=== PATIENT | male | born 1990 | race Two or more races ===

== ENCOUNTER 2021-08-30 00:13 | Emergency (ER) | payer OTHER ==
[~2021-08-30] VITALS: Ht 175.3 cm; Wt 91.0 kg
[~2021-08-30 00:13] MED LIST: APIX5TAB PO; GABA-533 PO; KEPP500 MT; OLAN5TAB74 PO
[2021-08-30] MEDS ORDERED: LEVETIRACETAM 1000MG PREMIX 100 ML IV ONE (00:45)
[2021-08-30] MEDS ORDERED: KETOROLAC 30MG/ML VIAL IV ONE (01:00)
[2021-08-30 01:22] LABS: BASOPHILS % 0.4 % (0.0-2.0); EOSINOPHILS % 4.6 % (0.0-5.0); HEMATOCRIT. 38.7 % (42.0-52.0); HEMOGLOBIN. 12.5 g/dL (14.0-18.0); LYMPHOCYTES % 28.4 % (20.0-50.0); MEAN CORPUSCULAR HEMOGLOBIN 26.9 pg (28.0-32.0); MEAN CORPUSCULAR VOLUME 83.5 fL (80.0-94.0); MEAN PLATELET VOLUME 8.9 fl (7.4-10.4); MONOCYTES % 12.5 % (2.0-8.0); NEUTROPHILS % 54.1 % (40.0-76.0); PLATELET 236 x1000/uL (130-400); RED BLOOD CELL COUNT 4.64 mill/uL (4.7-6.1); RED CELL DISTRIBUTION WIDTH 16.4 % (11.6-14.6)
[2021-08-30 01:36] LABS: CHLORIDE 106 mEq/L (98-107)
[2021-08-30 01:39] LABS: ETHANOL BLOOD < 10 mg/dL
[2021-08-30 04:51] LABS: CLARITY URINE CLEAR (CLEAR); COLOR URINE YELLOW (YELLOW); KETONES URINE NEGATIVE (NEGATIVE); LEUKOCYTE ESTERASE URINE NEGATIVE (NEGATIVE); NITRITE URINE NEGATIVE (NEGATIVE); OCCULT BLOOD URINE NEGATIVE (NEGATIVE); PROTEIN URINE TRACE (NEGATIVE); UROBILINOGEN URINE 0.2 E.U./dL (0.2-1.0)
[2021-08-30 05:00] VITALS: BP 115/78
[2021-08-30 05:22] LABS: *AMPHETAMINES SCREEN URINE PRESUMTIVE POSITIVE (NEGATIVE); *BARBITURATES SCREEN URINE NEGATIVE (NEGATIVE); *BENZODIAZEPINES SCREEN URINE NEGATIVE (NEGATIVE); *COCAINE SCREEN URINE NEGATIVE (NEGATIVE); METHADONE URINE SCREEN NEGATIVE (NEGATIVE); OPIATES URINE SCREEN NEGATIVE (NEGATIVE); PHENCYCLIDINE URINE SCREEN NEGATIVE (NEGATIVE)
[2021-08-30 05:23] LABS: CANNABINOID URINE SCREEN NEGATIVE (NEGATIVE)
[2021-08-30] MEDS ORDERED: APIX5TAB MT (05:39)
[2021-08-30] MEDS ORDERED: KEPP500 MT (05:39)
[2021-08-30] MEDS ORDERED: APIX5TAB PO (13:01)
== END 2021-08-30 07:07 | disposition home or self-care (01) ==
LOC: ER 00:13
DX: G40.909 Epilepsy, unspecified, not intractable, without status epilepticus (principal); I82.401 Acute embolism and thrombosis of unspecified deep veins of right lower extremity; F19.10 Other psychoactive substance abuse, uncomplicated; F15.10 Other stimulant abuse, uncomplicated; Z91.018 Allergy to other foods; Z88.1 Allergy status to other antibiotic agents; Z88.5 Allergy status to narcotic agent; Z88.6 Allergy status to analgesic agent; Z98.890 Other specified postprocedural states
CPT/HCPCS: 36415; 72170; 73551; 73562; 73590; 80053; 80305; 80320; 81003; 82962; 83605; 85025; 93005; 93971; 96365; 96375; 99285; J1885; J1953; G0480

== ENCOUNTER 2021-08-30 09:48 | Emergency (ER) | payer OTHER ==
[~2021-08-30] VITALS: Ht 193 cm; Wt 97.0 kg
[~2021-08-30 09:48] MED LIST changes: +APIX5TAB MT
[2021-08-30] MEDS ORDERED: APIX5TAB PO (13:01)
[2021-08-30 13:40] VITALS: BP 112/75
== END 2021-08-30 13:45 | disposition home or self-care (01) ==
LOC: ER 11:47
DX: I82.401 Acute embolism and thrombosis of unspecified deep veins of right lower extremity (principal); M25.571 Pain in right ankle and joints of right foot; M79.671 Pain in right foot; Z88.0 Allergy status to penicillin; Z88.6 Allergy status to analgesic agent; Z88.8 Allergy status to other drugs, medicaments and biological substances; Z88.5 Allergy status to narcotic agent; Z91.018 Allergy to other foods; Z79.899 Other long term (current) drug therapy; Z88.1 Allergy status to other antibiotic agents; Z98.890 Other specified postprocedural states; Z86.59 Personal history of other mental and behavioral disorders
CPT/HCPCS: 73600; 73620; 99284

== ENCOUNTER 2025-01-08 20:28 | Emergency (ER) | payer OTHER ==
[~2025-01-08] VITALS: Ht 195.6 cm; Wt 91.0 kg
[~2025-01-08 20:28] MED LIST changes: -APIX5TAB MT; +CLIN-26 PO; +ESCI10TA MT; -GABA-533 PO; +GABA-534 PO; +LEVE1000 MT; +PRAZ1CAP5 MT; +TRAZ-251 MT
[2025-01-08 20:30] VITALS: TEMP 36.8; O2SAT 94
[2025-01-08 21:27] LABS: CHLORIDE 104 mEq/L (98-107); POTASSIUM 4.3 mEq/L (3.5-5.1); SODIUM 137 mEq/L (136-145)
[2025-01-08 21:28] LABS: CALCIUM 9.5 mg/dL (8.7-10.4); CARBON DIOXIDE 21 mEq/L (21-32)
[2025-01-08 21:29] LABS: BASOPHILS % 0.5 % (0.0-2.0); EOSINOPHILS % 8.8 % (0.0-5.0); HEMOGLOBIN. 13.5 g/dL (14.0-18.0); LYMPHOCYTES % 46.7 % (20.0-50.0); MEAN CORPUSCULAR HEMOGLOBIN 26.8 pg (28.0-32.0); MEAN CORPUSCULAR HGB CONC 31.3 g/dL (31.0-37.0); MEAN CORPUSCULAR VOLUME 85.7 fL (80.0-94.0); MEAN PLATELET VOLUME 9.3 fl (7.4-10.4); MONOCYTES % 13.5 % (2.0-8.0); NEUTROPHILS % 30.5 % (40.0-76.0); PLATELET 160 x1000/uL (130-400); RED BLOOD CELL COUNT 5.01 mill/uL (4.7-6.1); RED CELL DISTRIBUTION WIDTH 18.1 % (11.6-14.6); WHITE BLOOD COUNT 3.9 x1000/uL (4.5-11.0)
[2025-01-08 21:33] LABS: ETHANOL BLOOD < 10 mg/dL (<10); GLUCOSE 94 mg/dL (70-105); UREA NITROGEN BLOOD 10 mg/dL (9-23)
[2025-01-08] MEDS: LEVETIRACETAM 500MG PREMIX 100 ML IV ONE (21:49)
[2025-01-08] MEDS: LEVETIRACETAM 1000MG PREMIX 100 ML IV ONE (21:49)
[2025-01-09] MEDS: DIPHENHYDRAMINE HCL/ZINC ACET 28 GM CREAM TOP STA (02:12)
[2025-01-09 04:20] VITALS: BP 107/64; PULSE 51; RESP 16; O2SAT 100
== END 2025-01-09 04:41 | disposition home or self-care (01) ==
LOC: ER 20:36
DX: G40.909 Epilepsy, unspecified, not intractable, without status epilepticus (principal); F15.90 Other stimulant use, unspecified, uncomplicated; Z79.899 Other long term (current) drug therapy; Z79.01 Long term (current) use of anticoagulants; Z98.890 Other specified postprocedural states; Z86.718 Personal history of other venous thrombosis and embolism; Z88.0 Allergy status to penicillin; Z88.1 Allergy status to other antibiotic agents; Z88.2 Allergy status to sulfonamides; Z88.5 Allergy status to narcotic agent
CPT/HCPCS: 80048; 80320; 82962; 85025; 36415; 96365; 99284; J1953; Z7610 ×2; 99285; A4606; G0480

== ENCOUNTER 2025-02-16 08:14 | Emergency (ER) | payer OTHER ==
[~2025-02-16] VITALS: Ht 177.8 cm; Wt 74.0 kg
[2025-02-16 08:16] VITALS: O2SAT 99
[2025-02-16] MEDS ORDERED: LEVETIRACETAM 500MG PREMIX 100 ML IV ONE (08:30)
[2025-02-16 09:03] LABS: BASOPHILS % 1.0 % (0.0-2.0); EOSINOPHILS % 8.4 % (0.0-5.0); HEMATOCRIT. 40.7 % (42.0-52.0); HEMOGLOBIN. 13.1 g/dL (14.0-18.0); LYMPHOCYTES % 35.7 % (20.0-50.0); MEAN PLATELET VOLUME 9.0 fl (7.4-10.4); MONOCYTES % 10.1 % (2.0-8.0); NEUTROPHILS % 44.8 % (40.0-76.0); PLATELET 217 x1000/uL (130-400); RED BLOOD CELL COUNT 4.82 mill/uL (4.7-6.1); RED CELL DISTRIBUTION WIDTH 18.1 % (11.6-14.6)
[2025-02-16] MEDS ORDERED: LEVE1000 MT (09:09)
[2025-02-16] MEDS: LACTATED RINGERS 1,000 ML IV SCH (09:16)
[2025-02-16] MEDS: LEVETIRACETAM 500MG PREMIX 100 ML IV ONE (09:21)
[2025-02-16 09:29] LABS: CREATININE 1.3 mg/dL (0.6-1.3); UREA NITROGEN BLOOD 15 mg/dL (9-23)
[2025-02-16 09:31] LABS: ASPARTATE AMINOTRANSFERASE 25 IU/L (<34); BILIRUBIN TOTAL 1.2 mg/dL (0.1-1.0); PROTEIN TOTAL 7.5 g/dL (6.0-8.3)
[2025-02-16] MEDS: IBUPROFEN 600MG TABLET PO ONE (09:45)
[2025-02-16] MEDS: KETOROLAC 15MG/ML VIAL IV ONE (12:12)
[2025-02-16] MEDS: LEVETIRACETAM 500MG PREMIX 100 ML IV SCH (12:13)
[2025-02-16 13:23] VITALS: BP 126/82; PULSE 42; RESP 13; TEMP 36.9; O2SAT 99
== END 2025-02-16 13:45 | disposition short-term general hospital (02) ==
LOC: ER 08:14 → CANBEDREQ 11:52 → ER 13:45
DX: S80.811A Abrasion, right lower leg, initial encounter (principal); R56.9 Unspecified convulsions; R00.1 Bradycardia, unspecified; Z79.899 Other long term (current) drug therapy; Z88.0 Allergy status to penicillin; Z88.1 Allergy status to other antibiotic agents; Z88.2 Allergy status to sulfonamides; Z88.5 Allergy status to narcotic agent; Z79.01 Long term (current) use of anticoagulants; V29.99XA Rider (driver) (passenger) of other motorcycle injured in unspecified traffic accident, initial encounter; Y93.89 Activity, other specified; Y92.89 Other specified places as the place of occurrence of the external cause; Y99.8 Other external cause status
CPT/HCPCS: 80053; 85025; 36415; 73590; 70450; 93005; 96361; 96365; 96375; 99291; J1953; J1885; Z7610; A6449; A4606